=== PATIENT | female | born 1995 | race American Indian/Alaskan Native ===

== ENCOUNTER 2022-03-13 02:55 | Emergency (ER) | payer OTHER ==
[2022-03-13 04:49] LABS: Bilirubin,Urine NEG (Negative); Blood,Urine SM (Negative); Color,Urine Straw (Yellow); Protein,Urine <15 mg/dL mg/dL (Negative); Urobilinogen,Urine < 2.0 mg/dL (<2.0); WBC,Urine < 1.0 /HPF (0.0-6.0)
[2022-03-13 04:52] LABS: Basophils # (Auto) 0.1 K/mm3 (0.0-0.1); Basophils % (Auto) 0.7 % (0.0-1.8); Eosinophils # (Auto) 0.4 K/mm3 (0.0-0.4); Eosinophils % (Auto) 3.3 % (0.0-4.3); Hematocrit 36.8 % (30.3-42.9); Hemoglobin 12.2 gm/dl (10.1-14.3); Lymphocytes # (Auto) 2.9 K/mm3 (1.2-5.4); Mean Corpuscular HGB Conc 33 % (30-34); Mean Corpuscular Volume 85 fl (79-97); Monocytes # (Auto) 0.5 K/mm3 (0.0-0.8); Monocytes % (Auto) 4.3 % (0.0-7.3); Platelet Count 269 K/mm3 (140-440); Red Blood Count 4.32 M/mm3 (3.65-5.03)
[2022-03-13 04:58] LABS: Amphetamine Screen,Urine Negative; Benzodiazepines Screen,Urine Negative; Cannabinoid Screen,Urine Negative; Cocaine Screen,Urine Negative; Methadone Screen,Urine Negative; Opiate Screen,Urine Negative
[2022-03-13 05:09] LABS: Blood Urea Nitrogen 12 mg/dL (7-17); Hemolysis Index 6
[2022-03-13 05:10] LABS: BUN/Creatinine Ratio 17
--- NOTE | 2022-03-13 08:14 | Emergency Department Report ---
ED Psych HPI - General Chief Complaint: Psych Stated Complaint: SI Source: patient, EMS Mode of arrival: Stretcher - History of Present Illness MD Complaint: suicidal ideation, feels depressed -: Gradual Associated Psychiatric Symptoms: depression, suicidal ideation History of same: Yes (4 years ago) Quality: intermittent Improves With: medication Worsens With: none Context: significant life stressor (pt states she recently broke up with her boyfriend) Associated Symptoms: denies other symptoms Treatments Prior to Arrival: none If Self Harm: admits thoughts of Details of Plan: pt has no plan; she states "I thought I needed to come and get checked out before I did anything to myself" - Related Data Allergies Allergy/AdvReac Type Severity Reaction Status Date / Time Sulfa (Sulfonamide Allergy Hives Verified 03/13/22 04:28 Antibiotics) ED Review of Systems ROS: Stated complaint: SI Other details as noted in HPI Comment: All other systems reviewed and negative Constitutional: see HPI Eyes: denies: eye pain, eye discharge, vision change ENT: denies: ear pain, throat pain, dental pain, hearing loss Respiratory: denies: see HPI, cough, orthopnea, shortness of breath, SOB with exertion, SOB at rest Cardiovascular: denies: chest pain, palpitations, dyspnea on exertion, orthop landry, syncope, paroxysmal nocturnal dyspnea, other Endocrine: denies: see HPI, excessive sweating, flushing, intolerance to cold, intolerance to heat, increased hunger, increased thirst, increased urine, unexplained weight gain, unexplained weight loss Gastrointestinal: denies: abdominal pain, nausea, vomiting, diarrhea, constipation, hematemesis, melena, hematochezia, other Genitourinary: denies: urgency, dysuria, frequency, hematuria, discharge, abnormal menses, dyspareunia, other Musculoskeletal: denies: back pain Skin: denies: rash, lesions, change in color, change in hair/nails, pruritus Neurological: denies: headache, weakness, numbness, paresthesias, confusion Psychiatric: as per HPI, anxiety, depression, suicidal thoughts Hematological/Lymphatic: denies: easy bleeding, easy bruising, swollen glands ED Past Medical Hx - Past Medical History Previous Medical History?: Yes Hx Psychiatric Treatment: Yes (Schizophrenia) Additional medical history: Eczema. Anemia - Surgical History Past Surgical History?: No - Family History Family history: no significant - Social History Smoking Status: Current Every Day Smoker Substance Use Type: None ED Physical Exam - General Limitations: No Limitations - Head Head exam: Present: atraumatic, normocephalic, normal inspection - Eye Eye exam: Present: normal appearance, PERRL, EOMI, scleral icterus - ENT ENT exam: Present: normal exam, normal orophraynx, mucous membranes moist - Neck Neck exam: Present: normal inspection - Respiratory Respiratory exam: Present: normal lung sounds bilaterally, respiratory distress - Cardiovascular Cardiovascular Exam: Present: regular rate, normal rhythm, normal heart sounds - GI/Abdominal GI/Abdominal exam: Present: soft, normal bowel sounds. Absent: distended, tenderness, guarding, rebound, hyperactive bowel sounds, hypoactive bowel sounds, organomegaly, mass, bruit, pulsatile mass - Extremities Exam Extremities exam: Present: normal inspection, full ROM - Back Exam Back exam: Present: normal inspection, full ROM. Absent: tenderness, CVA tenderness (R), CVA tenderness (L), muscle spasm - Neurological Exam Neurological exam: Present: alert, altered, CN II-XII intact, motor sensory deficit ED Course Vital Signs 03/13/22 03/13/22 03/13/22 02:57 06:00 07:55 Temperature 97.8 F 98.2 F Pulse Rate 96 H 88 Respiratory 18 16 Rate Blood Pressure 118/77 Blood Pressure 129/89 [Right] O2 Sat by Pulse 98 100 96 Oximetry - Reevaluation(s) Reevaluation #1: 03/13/22 11:06am: pt is calm, cooperative; does not appear to be responding to internal stimuli; She is Aox4, and per my assessment, has decision making capacity; she denies SI/HI, or auditory visual hallucinations. Reevaluation #2: 03/13/22 13:40 Pt is well appearing; does not appear to be responding to internal stimuli; she is mentating well and is no acute distress; She denies SI/HI ED Medical Decision Making - Lab Data Result diagrams: 03/13/22 04:31 03/13/22 04:31 - Medical Decision Making Pt has been deemed medically cleared by me. 1013 signed. Pt will await evaluation by psychiatry for definitive dispositon. Patient was seen and evaluated by psychiatry. See patient's electronic health record for assessors documented impression and plan. Per documented report patient is not felt to be in any risk of imminent harm to herself or others. Patient has forward thin jaylan Insight and reports she feels better today and is not actively suicidal. Resources provided by psychiatry. Patient reassessed by me and again she denies any active SI or HI. She appears well. She does not appear to be responding to any internal stimuli. 1013 rescinded. Patient deemed stable for discharge to home. Prior to discharge patient was given strict verbal and written return precautions. She verbalized understanding and agreement the plan of care Critical care attestation.: If time is entered above; I have spent that time in minutes in the direct care of this critically ill patient, excluding procedure time. ED Disposition Clinical Impression: Schizophrenia, Suicidal ideation Disposition: HOME / SELF CARE / HOMELESS Is pt being admited?: No Does the pt Need Aspirin: No Condition: Stable Additional Instructions: Professional and Agency Contacts To help Resolve Crises(23/04) [place] Crisis Line: Suicide Prevention Line: Crisis Text Line: Text START to 387822 Emergency: 911 Outpatient [facility] Behavioral Health Resources: [facility]: [facility] [address] [place], [place] [address] [facility] [address] [place] [address] [facility] - [address] [place] [address] Sunday thru Sunday - 8am - 5pm [facility] Address: [address] [place] [address] ANDRE: [facility] Address: [address] [place] [address] Sunday thru Sunday- 7am-2pm [facility] Address: [address] [place] [address] Sunday thru Sunday: 8:30AM-5PM OUTPATIENT MENTAL HEALTH RESOURCES [facility], [address] [place], [place] [id number] [facility] Nathanael Sergei XIAO: [address] [place] [address] [facility]: [address] [place] [address] [address] [facility] [place] [address] [phone] [facility]: [address] [facility] [address] [place], [place] [id number] [facility]: [address] [facility] [address] [facility] [address] [facility]: [address] [place] [address] Tejas Hernandez MD: [address] [facility] [id number] [facility]: [address] [place], [place] [id number] [phone] [place] CRISIS AND ACCESS LINE: * Referrals: CAYLA MORA [Other] - 3-5 Days
--- NOTE | 2022-03-13 10:39 | Consultation ---
History of Present Illness - Reason for Consult Consult date: 03/13/22 Reason for consult: mental health evaluation - History of Present Psychiatric Illness The patient is a 27 year old female with history of schizophrenia. She presents to the ED with suicidal ideation. The patient is calm, alert and oriented x3. She reports feeling suicidal x 2 days. She reports stressor such as recent breakup with her boyfriend. The patient states " I feel better today, I needed t o come get check up." The patient reports being compliant with psychotropic medications; states she sees her psychiatric and therapist monthly at [facility]. She denies any current suicidal/homicidal ideation and denies hallucinations. PAST PSYCHIATRIC HISTORY: Diagnoses: Schizophrenia Suicide attempts or Self-harm behavior: Yes Prior psychiatric hospitalizations:Yes- [facility] Sub[facility] Abuse history: Denies Previous psychiatric medications tried: Outpatient treatment: Yes PAST MEDICAL HISTORY: None reported or document Family Psychiatric History: None reported or documented SOCIAL HISTORY Marital Status: Single Living Arrangements: Lives with mother Employment Status: Unemployed Access to guns/weapons: Denies Education:College History of Abuse:Denies Legal History: Denies REVIEW OF SYSTEMS Constitutional: Negative for weight loss ENT: Negative for stridor Respiratory: Negative for cough or hemoptysis All other systems reviewed and are negative MENTAL STATUS EXAMINATION General Appearance and Behavior: Age appropriate, wearing appropriate clothes, cooperative, polite with questioning, good eye contact Cooperation: cooperative Psychomotor Behavior: Psychomotor normal Mood:Calm Affect and affective range: congruent with stated mood Thought Process: Goal directed Thought Content: Reality oriented Speech: Normal Suicidal Ideation: Denies Homicidal Ideation: Denies Hallucination: Denies Delusions: None elicited Impulse Control: Limited Insight and Judgment: Limited Memory: limited Attention:inattentive Orientation: Alert and oriented Diagnoses: Hx of Schizophrenia Treatment Plan [id number] Continue home meds. Medical: per primary Sitter: defer to primary Disposition: Do not Recommend acute psychiatric inpatient treatment. The bottom sander will provide patient with psychiatric out patient resources. Will sign off. Thanks Case staffed with Dr. Bailey Medications and Allergies Medications and Allergies Allergies Allergy/AdvReac Type Severity Reaction Status Date / Time Sulfa (Sulfonamide Allergy Hives Verified 03/13/22 04:28 Antibiotics) Mental Status Exam - Vital signs Last Vital Signs Temp 98.2 F 03/13/22 07:55 Pulse 88 03/13/22 07:55 Resp 16 03/13/22 07:55 BP 129/89 03/13/22 07:55 Pulse Ox 96 03/13/22 07:55 Results Result Diagrams: 03/13/22 04:31 03/13/22 04:31 Abnormal lab results 03/13/22 03/13/22 03/13/22 Range/Units 04:31 04:31 04:31 WBC 11.2 H (4.5-11.0) K/mm3 RDW 17.0 H (13.2-15.2) % Salicylates < 0.3 L (2.8-20.0) mg/dL Acetaminophen 5.0 L (10.0-30.0) ug/mL All other labs normal.
[2022-03-13 14:16] VITALS: BP 124/78
== END 2022-03-13 14:16 | disposition home or self-care (01) ==
LOC: EDSEX → ED 02:55
DX: F20.9 Schizophrenia, unspecified (principal); R45.851 Suicidal ideations; D64.9 Anemia, unspecified; F17.290 Nicotine dependence, other tobacco product, uncomplicated
CPT/HCPCS: 36415; 80048; 80307; 80320; 81001; 84702; 85025; 99284; G0480